=== PATIENT | female | born 1960 | race Caucasian/White ===

== ENCOUNTER 2017-05-20 08:16 | Day surgery (SDC) | payer OTHER ==
[2017-05-03 09:59] VITALS: BMI 34.1
[2017-05-20] MEDS ORDERED: Lactated Ringer's 1,000 ML IV ONE (11:50)
[2017-05-20] MEDS ORDERED: Lidocaine Hydrochloride 5 ML INJ ONE (12:01)
[2017-05-20] MEDS ORDERED: Propofol 10 mg/ml Inj (20 ML) ONE (12:01)
[2017-05-20 12:44] VITALS: TEMP 98.4
[2017-05-20 13:52] VITALS: O2SAT 100
[2017-05-20 14:05] VITALS: BP 123/74; PULSE 88; RESP 20
== END 2017-05-20 14:30 | disposition home or self-care (01) ==
LOC: C.ENDO 08:16
PROVIDERS: ATTEND Internal Medicine Gastroenterology
DX: Z12.11 Encounter for screening for malignant neoplasm of colon (principal); K64.8 Other hemorrhoids
CPT/HCPCS: 45378; 82948; J2704; J3010; J7120